=== PATIENT | male | born 1985 | race Caucasian/White ===

== ENCOUNTER 2020-10-15 00:38 | Outpatient (CLI) | payer OTHER, SELFPAY ==
[2020-10-15 19:17] LABS: SARS-CoV-2 RNA PCR Negative
== END 2020-10-15 00:39 | disposition home or self-care (01) ==
LOC: ANHCOVIDDT 00:39
PROVIDERS: Internal Medicine Gastroenterology; PCP Family Medicine Sports Medicine
DX: Z01.812 Encounter for preprocedural laboratory examination (principal); Z20.822 Contact with and (suspected) exposure to COVID-19
CPT/HCPCS: C9803; U0003; U0005

== ENCOUNTER 2020-10-18 01:21 | Day surgery (SDC) | payer OTHER, SELFPAY ==
[2020-10-04 14:02] VITALS: BMI 28.3
[2020-10-18 09:15] VITALS: BP 139/86; PULSE 107; RESP 16; TEMP 36.8; O2SAT 97
[2020-10-18] MEDS: LACTATED RINGERS 1,000 ML 150 ML IV CONT (09:23)
--- NOTE | 2020-10-18 09:33 | WPDANESEPPF ---
Anes - Initial Pre Proc Eval Procedure: Operation Date: 10/18/20 10:45 Proposed Procedures p Esophagogastroduodenoscopy & Colonoscopy - Cj Gan MD Date/Time: 10/18/20 09:33 Surgeon: Cj Gan MD Pre Op Diagnosis: Epigastric Pain, Other Fecal Abnoramlities Patient Data Age: 34 Gender: M Height: 1.75 m Weight: 86.2 kg Last Vital Signs Temp 36.8 C 10/18/20 09:15 Pulse 107 H 10/18/20 09:15 Resp 16 10/18/20 09:15 BP 139/86 10/18/20 09:15 Pulse Ox 97 10/18/20 09:15 Allergies Allergy/AdvReac Type Severity Reaction Status Date / Time No Known Drug Allergies Allergy Mild Unknown Verified 10/18/20 09:14 Home Medications Medication Instructions Recorded Confirmed Type omeprazole 20 mg capsule,delayed 20 mg PO DAILY 09/22/20 10/18/20 History release sodium,potassium,mag sulfates 17.5 See Rx Instructions PO .COMPLEX 10/04/20 10/18/20 Rx gram-3.13 gram-1.6 gram oral soln #354 ml Patient hx anesthesia problems: none Family hx anesthesia problems: none PMFSH Past Medical History Medical History (Updated 09/22/20 @ 16:29 by Cj Gan MD) Asthma Chronic headaches Colon, diverticulosis Dark stools Epigastric pain GERD (gastroesophageal reflux disease) Heart murmur Surgical History Surgical History S/P hernia surgery Social History Social History (Updated 09/22/20 @ 15:48 by Kimi Watts CMA) Smoking status: Never smoker Alcohol intake: never Substance use: never Substance use type: does not use Living arrangements: with family Gender identity (if verbalized by the patient): Male Spiritual care concerns: No Anes - Eval Final PreProcedure Day of Procedure 10/18/20 09:33 Patient weight: overweight Heart: regular rate and rhythm Lungs: clear to auscultation and normal air movement Airway: Mallampati scale class II Neurological: alert and oriented Last oral intake: >/= 8 hours ASA classification: II Emergent: no Anesthetic plan: proceed Anesthesia type and monitoring: general GIVS Informed Consent: The patient's anesthetic plan and its attendant risks and benefits were discussed with the patient/family/POA. Questions were solicited and answers provided to the satisfaction of the patient/family/POA.
--- NOTE | 2020-10-18 09:57 | WPDHPUPDATE1 ---
History and Physical Update Update Date/Time: 10/18/20 09:57 History and Physical has been reviewed, including an updated exam of the patient. There are NO changes in the patient's condition. Risks, benefits, and alternatives have been discussed and questions answered. Patient agrees to proceed with procedure.
[2020-10-18 10:22] VITALS: BP 116/78; PULSE 96; RESP 20; O2SAT 96
[2020-10-18 10:32] VITALS: BP 126/84; PULSE 78; RESP 22; O2SAT 99
[2020-10-18 10:42] VITALS: BP 123/86; PULSE 74; RESP 18; O2SAT 98
[2020-10-18 10:52] VITALS: BP 125/85; PULSE 76; RESP 18; O2SAT 100
== END 2020-10-18 10:58 | disposition home or self-care (01) ==
PROVIDERS: PCP Family Medicine Sports Medicine; Visit Provider Internal Medicine Gastroenterology
PROC: 0DJ08ZZ Inspection of Upper Intestinal Tract, Via Natural or Artificial Opening Endoscopic (ICD-10-PCS; CPT 43235; principal; 2020-10-18 10:45)
DX: K57.30 Diverticulosis of large intestine without perforation or abscess without bleeding (principal); K64.8 Other hemorrhoids; K63.5 Polyp of colon; K29.50 Unspecified chronic gastritis without bleeding; K21.9 Gastro-esophageal reflux disease without esophagitis; J45.909 Unspecified asthma, uncomplicated
CPT/HCPCS: 45380; 43239; 88305; C9803; J2704; J7120; U0003; U0005

== ENCOUNTER 2020-12-01 15:18 | Outpatient (CLI) | payer OTHER, SELFPAY ==
[2020-12-01 15:32] LABS: Hematocrit 47.6 % (42.0-52.0); Hemoglobin 15.9 g/dL (14.0-18.0); Mean Corpuscular HGB Conc 33.4 g/dl (32-36); Mean Corpuscular Hemoglobin 28.6 pg (26-34); Mean Corpuscular Volume 85.6 fl (80-100); Mean Platelet Volume 9.6 fl (7.4-10.4); Platelet Count Result 282 k/mm3 (150-375); Red Blood Count 5.56 M/mm3 (4.6-6.20); Red Cell Distribution Width 12.9 % (11.5-14.5); White Blood Count 9.3 K/mm3 (4.5-10.0)
[2020-12-01 15:45] LABS: Alanine Aminotransferase 24 U/L (4-50); Albumin Level 4.7 g/dL (3.5-5.1); Alkaline Phosphatase 107 U/L (38-126); Anion Gap 6 mmol/L (8-16); Aspartate Amino Transferase 28 U/L (17-59); Bilirubin,Total 0.2 mg/dL (0.2-1.3); Blood Urea Nitrogen 10 mg/dL (9-20); Calcium 9.4 mg/dL (8.4-10.2); Carbon Dioxide 32 mmol/L (22-30); Chloride 102 mmol/L (98-107); Estimated Glomerular Filt Rate > 60; Glucose 104 mg/dL (75-110); Magnesium 1.9 mg/dL (1.6-2.3); Sodium 140 mmol/L (137-145)
== END 2020-12-01 15:19 | disposition home or self-care (01) ==
PROVIDERS: PCP Family Medicine Sports Medicine; Visit Provider Nurse Practitioner Family
DX: R19.7 Diarrhea, unspecified (principal)
CPT/HCPCS: 36415; 80053; 83735; 84443; 85027

== ENCOUNTER 2022-11-09 09:16 | Outpatient (CLI) | payer OTHER, SELFPAY ==
[2022-11-09 10:05] LABS: Hematocrit 46.8 % (42.0-52.0); Hemoglobin 15.2 g/dL (14.0-18.0); Mean Corpuscular HGB Conc 32.5 g/dl (32-36); Mean Corpuscular Hemoglobin 28.1 pg (26-34); Mean Corpuscular Volume 86.7 fl (80-100); Platelet Count Result 292 k/mm3 (150-375); Red Cell Distribution Width 13.3 % (11.5-14.5); White Blood Count 7.3 K/mm3 (4.5-10.0)
[2022-11-09 10:15] LABS: Alanine Aminotransferase 30 U/L (6-50); Albumin Level 4.6 g/dL (3.5-5.1); Alkaline Phosphatase 93 U/L (38-126); Anion Gap 5 mmol/L (8-16); Aspartate Amino Transferase 24 U/L (17-59); Bilirubin,Total 0.4 mg/dL (0.2-1.3); Blood Urea Nitrogen 11 mg/dL (9-20); CRP < 0.5 mg/dL (<1.0); Carbon Dioxide 32 mmol/L (22-30); Chloride 104 mmol/L (98-107); Estimated Glomerular Filt Rate > 60; Glucose 104 mg/dL (65-110); Lipase 41 U/L (23-300); Potassium 4.6 mmol/L (3.4-5.0); Sodium 141 mmol/L (137-145)
[2022-11-09 11:14] LABS: Erythrocyte Sedimentation Rate 5 mm/hr (0-20)
[2022-11-13 11:24] LABS: Gliadin AB, IgG <1.0 U/mL (<15.0); TTG IGA AB <1.0 U/mL (<15.0)
== END 2022-11-09 09:17 | disposition home or self-care (01) ==
LOC: ANHLAB 09:18
PROVIDERS: PCP Nurse Practitioner Family; Visit Provider Nurse Practitioner
DX: R10.13 Epigastric pain (principal); R11.0 Nausea; R00.2 Palpitations
CPT/HCPCS: 36415; 80053; 83516; 83690; 84443; 85027; 85652; 86140; 86255

== ENCOUNTER 2022-11-20 07:15 | Outpatient (CLI) | payer OTHER, SELFPAY ==
--- NOTE | ~2022-11-20 | NM_ITS ---
EXAMINATION: NM hepatobiliary wo pharm DATE: 11/20/2022 11:31 INDICATION: Nausea, chest and epigastric pain. COMPARISON: None. TECHNIQUE: 5.2 mCi Tc-99m mebrofenin (Choletec) was administered intravenously. Scintigraphic images of the abdomen were obtained for one hour. At the 1 hour time point, the patient drank 8 oz Ensure, and imaging was continued for 60 minutes. Gallbladder ejection fraction was calculated by the technol ogist. FINDINGS: There is normal clearance of radiotracer from the blood pool. There is homogeneous tracer u ptake by the liver. Activity progresses to the bowel and gallbladder. The gallbladder ejection fract ion (GBEF) is 50%. Note that with this technique, normal GBEF >= 33%. IMPRESSION: 1. Normal hepatobiliary scan. Reviewed, dictated and finalized at location A. SH SANDER
== END 2022-11-20 07:16 | disposition home or self-care (01) ==
PROVIDERS: PCP Nurse Practitioner Family; Visit Provider Nurse Practitioner
DX: R00.2 Palpitations (principal); R07.9 Chest pain, unspecified; R11.0 Nausea
CPT/HCPCS: 78226; A9537

== ENCOUNTER 2022-11-22 08:56 | Outpatient (CLI) | payer OTHER, SELFPAY ==
--- NOTE | ~2022-11-22 | US_ITS ---
EXAMINATION: US abdomen complete DATE: 11/22/2022 09:53 INDICATION: R00.2 - Palpitations TECHNIQUE: Multiple grayscale and Doppler ultrasound images of the abdomen were obtained. COMPARISON: None available. FINDINGS: The visualized portions of the pancreas are normal. The liver is normal with normal echogen icity and echotexture. No surface nodularity. Hepatopedal flow in the main portal vein, with very mil d pulsatility, velocity does not reach zero and there is no reversal. Hepatic veins appear grossly no rmal. The gallbladder is normal with no abnormal wall thickening, pericholecystic fluid or stones. Th e common bile duct measures 5 mm. There was no sonographic Bardales sign. The visualized portions of th e aorta and inferior vena cava are normal. The right kidney measures 10.2 x 5.0 x 4.1 cm. The left kidney measures 10.2 x 4.8 x 4.2 cm. The kidn eys demonstrate normal parenchymal echogenicity. There is no hydronephrosis. The spleen is normal in appearance and measures 10.0 cm. IMPRESSION: Unremarkable abdominal ultrasound findings. Reviewed, dictated and finalized at location K. ITION HELPER
== END 2022-11-22 08:57 | disposition home or self-care (01) ==
PROVIDERS: PCP Nurse Practitioner Family; Visit Provider Nurse Practitioner
DX: R00.2 Palpitations (principal); R07.9 Chest pain, unspecified; R11.0 Nausea; R10.13 Epigastric pain
CPT/HCPCS: 76700

== ENCOUNTER 2022-12-07 15:39 | Emergency (ER) | payer OTHER, SELFPAY ==
--- NOTE | ~2022-12-07 | CT_ITS ---
Clinical Indication: Chest pain, abdominal pain CT Scan of the Chest, Abdomen, and Pelvis with Contrast: Technique: Contiguous sections were acquired throughout the chest, abdomen, and pelvis after intraven ous administration of 100 cc of Omnipaque 350. Dose reduction technique was used on this scan by violet fernández automated exposure control and iterative reconstruction technique. The dose-length product (DL P) was 1319.25 mGy-cm. COMPARISON: 08/11/2010 Findings: There is no evidence of any significant mediastinal, hilar or axillary lymphadenopathy. The mediastin al soft tissues appear normal. No aortic aneurysm or dissection. No pulmonary embolus. There is no evidence of pleural or pericardial effusion. The lungs are clear. No pulmonary nodules or infiltrates are noted. The liver, spleen, pancreas, gallbladder, adrenals and kidneys are within normal limits. No evidence of aortic aneurysm. No lymphadenopathy. No bowel obstruction or bowel wall thickening. There is no evidence to suggest acute appendicitis. Urinary bladder is unremarkable. Prostate gland and seminal vesicles are unremarkable. Impression: No significant abnormalities seen. Reviewed, dictated and finalized at [facility]. Impression: No significant abnormalities seen.
--- NOTE | ~2022-12-07 | XR_ITS ---
EXAMINATION: XR chest 2V DATE: 12/07/2022 16:14 INDICATION: Shortness of breath and dizziness TECHNIQUE: PA and lateral views of the chest are obtained. COMPARISON: None available FINDINGS: The lungs are free of acute opacities. No pleural effusion or pneumothorax. The cardiomedia stinal silhouette is normal. The visualized bones and soft tissues are unremarkable. IMPRESSION: 1. No acute cardiopulmonary abnormality. Reviewed, dictated and finalized at location L.
--- NOTE | 2022-12-07 15:45 | ECG_ITS ---
Measurements Intervals [place] Rate: 73 P: 52 [place]: 148 QRS: -7 QRSD: 99 T: 36 QT: 352 QTc: 389 Interpretive Statements SINUS RHYTHM BASELINE ARTIFACT- V3-V4 NORMAL ECG NO PREVIOUS ECG AVAILABLE FOR COMPARISON Electronically Signed On 12-07-2022 16:05:15 CDT by Clarence Shaffer D.O.
[2022-12-07 15:46] VITALS: BP 124/86; PULSE 66; RESP 14; TEMP 37.1; O2SAT 99
[2022-12-07 16:10] LABS: Basophils Percent Auto 0.5 % (0.2-1.2); Eosinophils Percent Auto 0.1 % (0-4.4); Hematocrit 45.3 % (42.0-52.0); Hemoglobin 14.9 g/dL (14.0-18.0); Immature Granulocyte Absolute 0.04 K/mm3 (0.00-0.031); Immature Granulocyte Percent A 0.5 % (0-0.5); Lymphocytes Absolute Auto 1.19 K/mm3 (0.9-3.2); Lymphocytes Percent Auto 13.6 % (18.3-44.2); Mean Corpuscular HGB Conc 32.9 g/dl (32-36); Mean Corpuscular Hemoglobin 28.3 pg (26-34); Mean Corpuscular Volume 86.1 fl (80-100); Mean Platelet Volume 9.5 fl (7.4-10.4); Monocytes Absolute Auto 0.6 K/mm3 (0.1-0.6); Monocytes Percent Auto 6.9 % (2.6-8.5); Neutrophils Absolute Auto 6.9 K/mm3 (1.3-6.7); Neutrophils Percent Auto 78.4 % (45.5-73.1); Platelet Count Result 292 k/mm3 (150-375); Red Blood Count 5.26 M/mm3 (4.6-6.20); Red Cell Distribution Width 12.9 % (11.5-14.5); White Blood Count 8.8 K/mm3 (4.5-10.0)
[2022-12-07 16:20] LABS: Alanine Aminotransferase 25 U/L (6-50); Albumin Level 4.6 g/dL (3.5-5.1); Alkaline Phosphatase 108 U/L (38-126); Anion Gap 8 mmol/L (8-16); Aspartate Amino Transferase 22 U/L (17-59); Bilirubin,Total 0.5 mg/dL (0.2-1.3); Blood Urea Nitrogen 13 mg/dL (9-20); Calcium 8.7 mg/dL (8.4-10.2); Carbon Dioxide 26 mmol/L (22-30); Chloride 105 mmol/L (98-107); Estimated CRCL calculation 131 ml/min; Estimated Glomerular Filt Rate > 60; Glucose 105 mg/dL (65-110); Lipase 51 U/L (23-300); Potassium 3.9 mmol/L (3.4-5.0); Sodium 139 mmol/L (137-145)
[2022-12-07 16:29] LABS: INR 1.2; Partial Thromboplastin Time 31.2 SECONDS (22.3-36.8); Prothrombin Time 14.4 Seconds (11.1-14.7)
[2022-12-07 16:31] LABS: Troponin I < 0.012 ng/mL (0.000-0.034)
[2022-12-07 20:31] VITALS: BP 126/88; PULSE 63; RESP 16; TEMP 36.6; O2SAT 98
[2022-12-07 21:11] LABS: Troponin I < 0.012 ng/mL (0.000-0.034)
--- NOTE | 2022-12-07 21:40 | PC.NURSE ---
pt states he has had palpitations since August states he has had stress test, echo and wore a holter monitor since then. [facility] he has followup appt tomorrow and will find out the results. [facility] also has had several tests ordered by GI and has EGD scheduled for 01/05. states he had palpitations and cp today along with sob and is worried.
[2022-12-07 21:43] VITALS: BP 130/95; PULSE 65; RESP 16; O2SAT 100
[2022-12-07 21:44] VITALS: PULSE 65
--- NOTE | 2022-12-08 00:22 | ED.GENADULT ---
HPI - General Adult General Chief complaint: Arrhythmia/Palpitations Stated complaint: SOB/palpitations Time Seen by Provider: 12/07/22 22:46 History of Present Illness HPI narrative: Patient 37-year-old gentleman who presents the emergency department with chief complaint of palpitations and shortness of breath. Patient reports that he has had several episodes of feeling as though his heart is racing getting lightheaded and feeling as though he is about to pass out the patient reports he has been seen at [place] several times and has seen cardiology and had a several day Holter monitor test but does not have the results of this. Patient reports that he is does follow-up with cardiology tomorrow and reports that he had an episode today at work and his employer recommended that he go to the emergency department. Patient reports that he is feeling much better at this time. Related Data Home Medications Medication Instructions Recorded Confirmed omeprazole 20 mg capsule,delayed 20 mg PO DAILY 09/22/20 12/01/20 release Allergies Allergy/AdvReac Type Severity Reaction Status Date / Time No Known Drug Allergies Allergy Mild Unknown Verified 12/07/22 15:40 Review of Systems Review of Systems: A 10 system review of systems was completed on the patient and is negative except for what is stated in the HPI. Nursing and ancillary documentation was reviewed. [facility] Past Medical History Medical History Asthma Chest pain Chronic gastritis Chronic headaches Colon, diverticulosis Dark stools Epigastric pain GERD (gastroesophageal reflux disease) Heart murmur Heart palpitations Hx of adenomatous colonic polyps Hx of diverticulitis of colon Nausea Obesity Surgical History Surgical History S/P hernia surgery Social History Social History Smoking status: Never smoker Alcohol intake: never Substance use: never Substance use type: does not use Living arrangements: with family Gender identity (if verbalized by the patient): Male Spiritual care concerns: No Exam Narrative: GENERAL: Well-appearing, well-nourished, and in no acute distress. HEAD: Normocephalic, atraumatic. EYES: PERRLA and EOMI. ENT: Nares clear, no rhinorrhea or epistaxis. Mucous membranes moist. NECK: Supple. CHEST: Clear to auscultation. No respiratory distress. HEART: Regular rate and rhythm. No murmur heard. Normal peripheral pulses. ABDOMEN: Soft, nontender, nondistended, normal active bowel sounds. EXTREMITIES: Normal range of motion. No edema. SKIN: Warm, dry, no rash. NEURO: No focal deficits. Alert and oriented x3. PSYCH: Normal mood and affect. Course Course Emergency Course: Differential diagnosis includes palpitations, dysrhythmia, PE, pneumonia, intra-abdominal infection, EKG is sinus rhythm rate of [address] elevation or ST depression Patient with no focal findings CTA chest abdomen pelvis showed no acute findings Laboratory studies showed normal CBC electrolytes are within normal limits troponin was negative at 0-hour and 3-hour. Lipase was within normal limits. The patient was observed on the wrapper counter and showed no evidence of dysrhythmia Vital Signs Vital signs: Vital Signs Temperature 37.1 C 12/07/22 15:46 Pulse Rate 66 12/07/22 15:46 Respiratory Rate 14 12/07/22 15:46 Blood Pressure 124/86 12/07/22 15:46 Pulse Oximetry 99 12/07/22 15:46 Oxygen Delivery Room Air 12/07/22 15:46 Temperature 36.6 C 12/07/22 20:31 Pulse Rate 65 12/07/22 21:44 Respiratory Rate 16 12/07/22 21:43 Blood Pressure 130/95 H 12/07/22 21:43 Pulse Oximetry 100 12/07/22 21:43 Oxygen Delivery Room Air 12/07/22 15:46 Medical Decision Making Vital Signs Vital Signs: Vital Signs Temperature
[2022-12-08 00:44] VITALS: BP 138/90; PULSE 78; RESP 18; O2SAT 98
== END 2022-12-08 00:45 | disposition home or self-care (01) ==
PROVIDERS: Emergency Medicine; Emergency Provider Emergency Medicine; PCP Nurse Practitioner Family
DX: R55 Syncope and collapse (principal); R00.2 Palpitations; J45.909 Unspecified asthma, uncomplicated; K21.9 Gastro-esophageal reflux disease without esophagitis
CPT/HCPCS: 36415; 71046; 71275; 74177; 80053; 83690; 84484; 85025; 85610; 85730; 93005; 99284; Q9967

== ENCOUNTER 2023-01-09 08:23 | Outpatient (CLI) | payer OTHER, SELFPAY ==
--- NOTE | 2023-02-02 11:02 | WPDSLEEPSTUD ---
Sleep Study Date of Study: 01/09/23 Ordering Provider: Lazaro Cabral MD Interpreting Physician: Alaina Anderson MD Sleep Study Type: CPAP Titration Height: 1.7 m Weight: 83.915 kg Body Mass Index: 29.0 Neck Circumference (inches): 16 [place]: 5 Reason for Sleep Study * Home sleep test using WatchPat 11/22/2022 with an apnea-hypopnea index 27.5, lowest desaturation 89%. Central apnea index was not reported. 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 He is treated for CAD, atrial fibrillation, and SVT. He has a history of obstructive sleep apnea, has been on PAP therapy without response to treatment. His PAP pressures are not known. He may have been on autoPAP. His initial study was over a year ago. He had a recent home sleep test 11/22/22 that showed he had an apnea hypopnea index of 27.6 He needs a CPAP titration. He has restless sleep, wakes up with heart palpitations. This happens randomly. His press bucker told him is blood oxygen levels were very low and this dropped his heart rate. He has difficulty falling asleep and staying asleep. He is excessively sleepy in the daytime. He has been treated with metoprolol and flecainide. He occasionally awakens from sleep feeling short of breath. He constantly awakens at night with heartburn, belching or coughing. He rarely snores, and it is rarely loud enough that others complain. He frequently has trouble sleeping with a cold. He rarely wakes up gasping for breath at night. He constantly has breathing problems at night observed by others. He frequently sweats excessively at night. He always notices palpitations at night. He occasionally falls asleep during the day, he never involuntarily and never while driving. He rarely has loss of muscle tone with strong emotion. He occasionally has daytime difficulties due to excessive sleepiness. He does not feel paralyzed on waking or falling asleep. He frequently has vivid dreamlike scenes upon awakening or falling asleep. He always feels afraid to go to sleep. He occasionally has nightmares. He always remembers his dreams. He always has racing thoughts. He frequently feels sad or depressed. He constantly has anxiety. He frequently has muscular tension. He constantly notices parts of his body jerking. He rarely kicks at night. He does not have crawling or aching feelings in his legs or any kind of leg pain at night. He rarely has morning jaw pain. He occasionally grinds his teeth during sleep. He occasionally is bothered by pain during the day. He rarely is awakened by pain at night. He occasionally wakes up feeling stiff in the morning with sore achy muscles. He frequently wakes up with pain in the neck and spine. He has headaches, fatigue, depression and insomnia. Normal bedtime is 10:00 p.m. falling asleep within 15-20 minutes. He wakes 4-5 times during the night usually to go to the bathroom but sometimes it is just a random awakening. Since he is sometimes able to return to sleep within minutes but at times, this may take hours. He wakes in the morning between 4:30 a.m. and 5:30 a.m.. On weekends, bedtime is still 10:00 p.m., wake time is later, 6:30 a.m. to 7:30 a.m.. He estimates getting 6 hours of interrupted sleep at night he does not generally take naps in the afternoon or evening. A short nap lasting 10-15 minutes may be refreshing. He is usually drowsy on waking. He feels better in the morning compared to other times of day. Habits: Never smoked tobacco. Caffeine 2 cups of coffee a day. No alcohol or recreational substances. [facility] Past Medical History Medical History Asthma Chest pain Chronic gastritis Chronic headaches Colon, diverticulosis Dark stools Epigastric pain GERD (gastroesophageal reflux disease) Heart murmur Heart palpitations Hx of adenomatous colonic polyps Hx of diverticulitis of
[2023-02-02 13:09] VITALS: BMI 29.0
== END 2023-01-10 05:35 | disposition home or self-care (01) ==
LOC: ANHCSM 08:27
PROVIDERS: PCP Family Medicine; Visit Provider Internal Medicine Cardiovascular Disease
DX: G47.30 Sleep apnea, unspecified (principal)
CPT/HCPCS: 95811

== ENCOUNTER 2023-01-24 19:08 | Emergency (ER) | payer OTHER, SELFPAY ==
[2023-01-24] VITALS (8 sets, daily range): BP systolic 124–128; BP diastolic 86–92; PULSE 49–70; RESP 15–20; TEMP 36.6; O2SAT 97–100
--- NOTE | ~2023-01-24 | XR_ITS ---
EXAMINATION: XR chest 2V Exam Date/Time: 01/24/2023 19:15 CDT HISTORY: cp AND SHORT OF BREATH X 1 DAY Comparison: 12/07/2022. RESULT: Lines, tubes, and devices: None. Lungs and pleura: Clear. Cardiomediastinal silhouette: Stable. Other: No acute osseous or upper abdominal finding. IMPRESSION: No acute cardiopulmonary process. Reviewed, dictated and finalized at location K.
--- NOTE | 2023-01-24 19:11 | ECG_ITS ---
Measurements Intervals [place] Rate: 57 P: 52 [place]: 156 QRS: 32 QRSD: 113 T: 36 QT: 398 QTc: 390 Interpretive Statements SINUS BRADYCARDIA INTRAVENTRICULAR CONDUCTION DELAY BASELINE ARTIFACT- I, II, AVR, AVF BORDERLINE ECG COMPARED TO ECG 12/07/2022 15:53:20 SINUS BRADYCARDIA NOW PRESENT INTRAVENTRICULAR CONDUCTION DELAY NOW PRESENT Electronically Signed On 01-24-2023 21:13:44 CDT by Clarence Shaffer D.O.
[2023-01-24 19:22] LABS: Basophils Absolute Auto 0.1 K/mm3 (0.0-0.1); Basophils Percent Auto 0.6 % (0.2-1.2); Eosinophils Absolute Auto 0.2 K/mm3 (0-0.3); Eosinophils Percent Auto 2.1 % (0-4.4); Hemoglobin 14.9 g/dL (14.0-18.0); Immature Granulocyte Absolute 0.02 K/mm3 (0.00-0.031); Immature Granulocyte Percent A 0.2 % (0-0.5); Lymphocytes Absolute Auto 2.31 K/mm3 (0.9-3.2); Lymphocytes Percent Auto 26.8 % (18.3-44.2); Mean Corpuscular HGB Conc 32.4 g/dl (32-36); Mean Corpuscular Hemoglobin 28.5 pg (26-34); Mean Corpuscular Volume 88.1 fl (80-100); Mean Platelet Volume 9.7 fl (7.4-10.4); Monocytes Absolute Auto 0.8 K/mm3 (0.1-0.6); Neutrophils Absolute Auto 5.3 K/mm3 (1.3-6.7); Neutrophils Percent Auto 61.3 % (45.5-73.1); Platelet Count Result 293 k/mm3 (150-375); Red Blood Count 5.22 M/mm3 (4.6-6.20); Red Cell Distribution Width 13.4 % (11.5-14.5); White Blood Count 8.6 K/mm3 (4.5-10.0)
[2023-01-24 19:32] LABS: Alanine Aminotransferase 26 U/L (6-50); Albumin Level 4.6 g/dL (3.5-5.1); Alkaline Phosphatase 95 U/L (38-126); Anion Gap 9 mmol/L (8-16); Aspartate Amino Transferase 25 U/L (17-59); Bilirubin,Total 0.4 mg/dL (0.2-1.3); Blood Urea Nitrogen 12 mg/dL (9-20); Carbon Dioxide 30 mmol/L (22-30); Chloride 103 mmol/L (98-107); Estimated CRCL calculation 115 ml/min; Estimated Glomerular Filt Rate > 60; Glucose 99 mg/dL (65-110); Lipase 46 U/L (23-300); Partial Thromboplastin Time 32.5 SECONDS (22.3-36.8); Potassium 3.9 mmol/L (3.4-5.0); Sodium 142 mmol/L (137-145)
[2023-01-24 19:44] LABS: Troponin I < 0.012 ng/mL (0.000-0.034)
--- NOTE | 2023-01-24 20:16 | ED.CHESTPAIN ---
HPI - Chest Pain General Chief Complaint: Chest Pain <DESTINEE Tamayo Last Filed: 01/25/23 02:37> Stated Complaint: chest tightness/lightheadeded <DESTINEE Tamayo Last Filed: 01/25/23 02:37> Time Seen by Provider: 01/24/23 19:58 <DESTINEE Tamayo Last Filed: 01/25/23 02:37> History of Present Illness HPI narrative: Patient is a 37-year-old male here for evaluation of multiple medical complaints. First, patient is having some chest pain. He describes it as a soreness in his anterior chest towards the middle of his sternum. It has been present for quite some time but he states it may have gotten worse this evening while he was at rest. States the pain is now improved but is still there. He also states that he has had a funny sensation in his head but he is described as a fullness. He has had some nasal congestion, dry cough and sinus drainage as well. He has had [id number] sensation in his posterior head for several months. Patient has been following along with an fruit or nut farm worker after he had Holter monitor done that showed some nonsustained supraventricular tachycardia. He is on metoprolol and also takes flecainide. Plan is for ablation if flecainide does not improve his symptoms, note reviewed from visit 01/09. <DESTINEE Tamayo Last Filed: 01/25/23 02:37> Related Data Home Medications: Home Medications Medication Instructions Recorded Confirmed metoprolol succinate 25 mg 25 mg PO DAILY 12/27/22 01/30/23 tablet,extended release 24 hr magnesium oxide 400 mg PO BID 01/04/23 01/30/23 flecainide 50 mg tablet 50 mg PO BID 01/17/23 01/30/23 <DESTINEE Tamayo Last Filed: 01/25/23 02:37> Allergies/Adverse Reactions: Allergies Allergy/AdvReac Type Severity Reaction Status Date / Time No Known Drug Allergies Allergy Mild Unknown Verified 01/30/23 14:24 <DESTINEE Tamayo Last Filed: 01/25/23 02:37> Review of Systems Review of Systems: Gen: Denies fevers or chills Eyes: Denies eye pain or visual change ENT: Reports congestion Respiratory: Denies shortness of breath or cough CV: Reports chest pain GI: Denies abdominal pain nausea, emesis or diarrhea denies burning, urgency, frequency or hematuria Musculoskeletal: Denies back pain or muscle pain Neuro: Denies numbness, tingling, weakness or focal weakness Skin: Denies rash Except as documented, all other systems reviewed and negative <DESTINEE Tamayo Last Filed: 01/25/23 02:37> [facility] Past Medical History Medical History: Medical History Asthma Chest pain Chronic gastritis Chronic headaches Colon, diverticulosis Dark stools Epigastric pain GERD (gastroesophageal reflux disease) Heart murmur Heart palpitations Hx of adenomatous colonic polyps Hx of diverticulitis of colon Nausea Obesity Sleep apnea Ventricular tachyarrhythmia <DESTINEE Tamayo Last Filed: 01/25/23 02:37> Surgical History Surgical History: Surgical History S/P hernia surgery <DESTINEE Tamayo Last Filed: 01/25/23 02:37> Social History Social History: Social History Smoking status: Never smoker Alcohol intake: current Drinks per week: 1 Substance use: never Substance use type: does not use Lack of Transportation: No Lack of Food: Never True Current Housing: I Have Housing Concerned About Future Housing: No Difficulty Paying Gas/Electric Bills: No Difficulty Paying for Meds: No Currently Unemployed: No Difficulty w/ Childcare or Family Care: No Living arrangements: with family Gender identity (if verbalized by the patient): Male Spiritual care concerns: No <DESTINEE Tamayo Last Filed:
[2023-01-24 20:27] LABS: Magnesium 2.3 mg/dL (1.6-2.3)
[2023-01-24] MEDS: IBUPROFEN 600 MG TABLET PO (20:30)
[2023-01-24 21:11] LABS: Influenza A QL RT-PCR Negative (Negative); Influenza B QL RT-PCR Negative (Negative); SARS-CoV-2 RNA PCR Negative (Negative)
[2023-01-24 22:51] LABS: Troponin I < 0.012 ng/mL (0.000-0.034)
== END 2023-01-24 23:42 | disposition home or self-care (01) ==
PROVIDERS: Emergency Medicine; Emergency Provider Physician Assistant; PCP Family Medicine
DX: R07.89 Other chest pain (principal); J32.9 Chronic sinusitis, unspecified; Z20.822 Contact with and (suspected) exposure to COVID-19; J45.909 Unspecified asthma, uncomplicated; K21.9 Gastro-esophageal reflux disease without esophagitis; G47.30 Sleep apnea, unspecified; E66.9 Obesity, unspecified; Z68.28 Body mass index [BMI] 28.0-28.9, adult; Z86.010 Personal history of colon polyps; R00.1 Bradycardia, unspecified; I45.9 Conduction disorder, unspecified
CPT/HCPCS: 36415; 71046; 80053; 83690; 83735; 84484; 85025; 85610; 85730; 87636; 93005; 99284; A9270

== ENCOUNTER 2023-01-26 02:36 | Day surgery (SDC) | payer OTHER, SELFPAY ==
[2022-12-27 13:54] VITALS: BMI 28.8
[2023-01-26 12:26] VITALS: BP 115/71; PULSE 59; RESP 16; TEMP 36.4; O2SAT 100; BMI 28.8
[2023-01-26] MEDS: LACTATED RINGERS 1,000 ML 150 ML IV CONT (12:35)
--- NOTE | 2023-01-26 12:36 | P.PNAN_ITS ---
Anes - Initial Pre Proc Eval Procedure: Operation Date: 01/26/23 14:00 Proposed Procedures p Esophagogastroduodenoscopy - Cj Gan MD Date/Time: 01/26/23 12:36 Surgeon: Cj Gan MD Pre Op Diagnosis: GERD, epigastric pain Patient Data Age: 37 Gender: M Height: 1.7 m Weight: 83.5 kg Last Vital Signs Temp 36.4 C L 01/26/23 12:26 Pulse 59 L 01/26/23 12:26 Resp 16 01/26/23 12:26 BP 115/71 01/26/23 12:26 Pulse Ox 100 01/26/23 12:26 O2 Del Method Room Air 01/26/23 12:26 Allergies Allergy/AdvReac Type Severity Reaction Status Date / Time No Known Drug Allergies Allergy Mild Unknown Verified 01/26/23 12:24 Home Medications Medication Instructions Recorded Confirmed Type metoprolol succinate 25 mg 25 mg PO DAILY 12/27/22 01/26/23 History tablet,extended release 24 hr famotidine 20 mg tablet 20 mg PO DAILY #30 tabs 01/04/23 01/26/23 Rx magnesium oxide 400 mg PO BID 01/04/23 01/26/23 History flecainide 50 mg tablet 50 mg PO BID 01/17/23 01/26/23 History Patient hx anesthesia problems: none Family hx anesthesia problems: none Results Review: All pre-operative results and documents have been reviewed as part of the pre- operative evaluation. [facility] Past Medical History Medical History Asthma Chest pain Chronic gastritis Chronic headaches Colon, diverticulosis Dark stools Epigastric pain GERD (gastroesophageal reflux disease) Heart murmur Heart palpitations Hx of adenomatous colonic polyps Hx of diverticulitis of colon Nausea Obesity Sleep apnea Ventricular tachyarrhythmia Surgical History Surgical History S/P hernia surgery Social History Social History Smoking status: Never smoker Alcohol intake: never Substance use: never Substance use type: does not use Living arrangements: with family Gender identity (if verbalized by the patient): Male Spiritual care concerns: No Anes - Eval Final PreProcedure Day of Procedure 01/26/23 12:36 Patient weight: overweight Heart: regular rate and rhythm Lungs: clear to auscultation and normal air movement Airway: Mallampati scale class II Neurological: alert and oriented Last oral intake: >/= 8 hours ASA classification: III Emergent: no Anesthetic plan: proceed Anesthesia type and monitoring: general GIVS Results Review: All pre-operative results and documents have been reviewed as part of the pre- operative evaluation. Informed Consent: The patient's anesthetic plan and its attendant risks and benefits were discussed with the patient/family/POA. Questions were solicited and answers provided to the satisfaction of the patient/family/POA.
--- NOTE | 2023-01-26 12:47 | WPDHPUPDATE1 ---
History and Physical Update Update Date/Time: 01/26/23 12:47 History and Physical has been reviewed, including an updated exam of the patient. There are NO changes in the patient's condition. Risks, benefits, and alternatives have been discussed and questions answered. Patient agrees to proceed with procedure.
[2023-01-26 13:03] VITALS: BP 106/61; PULSE 67; RESP 18; O2SAT 97
[2023-01-26 13:13] VITALS: BP 110/67; PULSE 66; RESP 17; O2SAT 97
[2023-01-26 13:23] VITALS: BP 113/76; PULSE 60; RESP 25; O2SAT 100
== END 2023-01-26 13:26 | disposition home or self-care (01) ==
PROVIDERS: PCP Family Medicine; Visit Provider Internal Medicine Gastroenterology
PROC: 0DJ08ZZ Inspection of Upper Intestinal Tract, Via Natural or Artificial Opening Endoscopic (ICD-10-PCS; CPT 43235; principal; 2023-01-26 14:00)
DX: K21.00 Gastro-esophageal reflux disease with esophagitis, without bleeding (principal); K29.50 Unspecified chronic gastritis without bleeding
CPT/HCPCS: 43239; 88305; J2704; J3010; J7120

== ENCOUNTER 2023-02-10 19:29 | Emergency (ER) | payer OTHER, SELFPAY ==
[2023-02-10] VITALS (9 sets, daily range): BP systolic 121–134; BP diastolic 79–93; PULSE 55–66; RESP 14–19; TEMP 36.6; O2SAT 95–100
--- NOTE | ~2023-02-10 | XR_ITS ---
EXAMINATION: XR chest 2V DATE: 02/10/2023 20:34 INDICATION: Shortness of breath and chest pain TECHNIQUE: PA and lateral views of the chest were obtained. COMPARISON: Chest radiograph dated 01/24/2023 FINDINGS: Blunting at the bilateral posterior sulci consistent with tiny bilateral pleural effusions. Tiny calc ified subpleural nodule in the right lower lobe. No other airspace opacities, pulmonary edema or pneu mothorax. The cardiomediastinal silhouette is normal. Mild thoracic dextrocurvature and chronic mild anterior wedging of a couple mid thoracic vertebral bodies. IMPRESSION: 1. Tiny bilateral pleural effusions. Reviewed, dictated and finalized at location A.
--- NOTE | ~2023-02-10 | CT_ITS ---
EXAMINATION: CTA chest PE protocol DATE: 02/10/2023 21:57 INDICATION: Chest pain. Palpitations. TECHNIQUE: Computed tomography angiography (CTA) of the chest was performed with 100 mL Omnipaque-350 intravenous contrast timed to evaluate the pulmonary arteries. Coronal maximum intensity projection 3D-reconstructions were created by the technologist. Automated exposure control and iterative reconst ruction technique were employed. The dose-length product was 423.78 mGy-cm. COMPARISON: Chest CT 12/07/2022 FINDINGS: The lungs demonstrate mild atelectasis. No pleural effusion. The heart size is normal. No p ericardial effusion. There is no pulmonary embolus. There is mild chronic anterior wedging of T3-T9 v ertebral bodies with thoracic kyphosis. IMPRESSION: 1. No pulmonary embolus. Reviewed, dictated and finalized at location A. IMPRESSION: 1. No pulmonary embolus.
--- NOTE | 2023-02-10 19:32 | ECG_ITS ---
Measurements Intervals [place] Rate: 58 P: 9 [place]: 145 QRS: -6 QRSD: 109 T: 31 QT: 418 QTc: 411 Interpretive Statements SINUS BRADYCARDIA BORDERLINE T WAVE ABNORMALITY- INFERIOR LEADS BASELINE ARTIFACT- III, V3 BORDERLINE ECG COMPARED TO ECG 01/24/2023 19:15:12 NO SIGNIFICANT CHANGES Electronically Signed On 02-11-2023 7:06:00 CDT by Clarence Shaffer D.O.
--- NOTE | 2023-02-10 20:26 | ED.GENADULT ---
HPI - General Adult General Chief complaint: Shortness of Breath/Dyspnea Stated complaint: dyspnea Time Seen by Provider: 02/10/23 19:48 History of Present Illness HPI narrative: Patient is a 37-year-old male here due to chest pain x1 day. Patient states the pain is sharp in nature, present on the left side of his chest, described as a gurgling sensation. States that the pain sentiment to a panic attack earlier today. Patient has been following with the EP doctor and consumer credit counselor due to similar symptoms over the past 6 months, has worn a Holter monitor that showed V. tach and SVT and he has been taking flecainide and metoprolol. States that these medicines have really not helped his symptoms but he is unaware of any further events of arrhythmias. Today he denies any lightheadedness, nausea, vomiting, dizziness or syncope but he has experienced the symptoms intermittently over the past 6 months. He had a recent EGD that showed reflux esophagitis. He is also completed a sleep study medicine and reportedly was recommended to have a CPAP machine but has not yet gotten this yet. Related Data Home Medications Medication Instructions Recorded Confirmed metoprolol succinate 25 mg 25 mg PO DAILY 12/27/22 01/30/23 tablet,extended release 24 hr magnesium oxide 400 mg PO BID 01/04/23 01/30/23 flecainide 50 mg tablet 50 mg PO BID 01/17/23 01/30/23 Allergies Allergy/AdvReac Type Severity Reaction Status Date / Time No Known Drug Allergies Allergy Mild Unknown Verified 01/30/23 14:24 Review of Systems Review of Systems: Gen.: Denies fevers or chills Eyes: Denies eye pain or visual change ENT: Denies congestion Respiratory: Denies shortness of breath or cough CV: Reports chest pain GI: Denies abdominal pain nausea, emesis or diarrhea denies burning, urgency, frequency or hematuria Musculoskeletal: Denies back pain or muscle pain Neuro: Denies numbness, tingling, weakness or focal weakness Skin: Denies rash Except as documented, all other systems reviewed and negative [facility] Past Medical History Medical History Asthma Chest pain Chronic gastritis Chronic headaches Colon, diverticulosis Dark stools Epigastric pain GERD (gastroesophageal reflux disease) Heart murmur Heart palpitations Hx of adenomatous colonic polyps Hx of diverticulitis of colon Nausea Obesity Sleep apnea Ventricular tachyarrhythmia Surgical History Surgical History S/P hernia surgery Social History Social History Smoking status: Never smoker Alcohol intake: current Drinks per week: 1 Substance use: never Substance use type: does not use Lack of Transportation: No Lack of Food: Never True Current Housing: I Have Housing Concerned About Future Housing: No Difficulty Paying Gas/Electric Bills: No Difficulty Paying for Meds: No Currently Unemployed: No Difficulty w/ Childcare or Family Care: No Living arrangements: with family Gender identity (if verbalized by the patient): Male Spiritual care concerns: No Exam Narrative: APPEARANCE: Well appearing, no pain in distress, well-nourished. Head: Normocephalic and atraumatic. EYES: PERRLA/EOMI, conjunctivae clear NOSE: No nasal drainage EARS: External ear normal in appearance THROAT: Oropharynx is clear. Mucous membranes are moist. NECK: Supple. No adenopathy, no masses. RESPIRATORY: Airway patent, respirations nonlabored. Clear to auscultation bilaterally, no rales, rhonchi, wheezing. CARDIOVASCULAR: Regular rate and rhythm without murmurs, rubs, or gallops. ABDOMINAL: Normoactive bowel sounds. Soft, nontender, nondistended. No rebound tenderness or guarding. MUSCULOSKELETAL: Extremities are warm and well-perfused. Moves all extremities well. No edema. NEURO: Normal speech. No foca
[2023-02-10 20:35] LABS: Basophils Absolute Auto 0.1 K/mm3 (0.0-0.1); Basophils Percent Auto 0.6 % (0.2-1.2); Eosinophils Absolute Auto 0.1 K/mm3 (0-0.3); Eosinophils Percent Auto 0.8 % (0-4.4); Hematocrit 45.8 % (42.0-52.0); Immature Granulocyte Absolute 0.04 K/mm3 (0.00-0.031); Immature Granulocyte Percent A 0.5 % (0-0.5); Lymphocytes Percent Auto 22.3 % (18.3-44.2); Mean Corpuscular HGB Conc 32.8 g/dl (32-36); Mean Corpuscular Hemoglobin 28.4 pg (26-34); Mean Corpuscular Volume 86.7 fl (80-100); Mean Platelet Volume 9.9 fl (7.4-10.4); Monocytes Absolute Auto 0.8 K/mm3 (0.1-0.6); Monocytes Percent Auto 9.4 % (2.6-8.5); Neutrophils Absolute Auto 5.7 K/mm3 (1.3-6.7); Neutrophils Percent Auto 66.4 % (45.5-73.1); Platelet Count Result 305 k/mm3 (150-375); Red Blood Count 5.28 M/mm3 (4.6-6.20); White Blood Count 8.5 K/mm3 (4.5-10.0)
[2023-02-10 20:45] LABS: Alanine Aminotransferase 23 U/L (6-50); Albumin Level 4.6 g/dL (3.5-5.1); Alkaline Phosphatase 110 U/L (38-126); Anion Gap 6 mmol/L (8-16); Aspartate Amino Transferase 22 U/L (17-59); Bilirubin,Total 0.4 mg/dL (0.2-1.3); Blood Urea Nitrogen 11 mg/dL (9-20); Calcium 8.9 mg/dL (8.4-10.2); Carbon Dioxide 30 mmol/L (22-30); Chloride 103 mmol/L (98-107); Estimated CRCL calculation 142 ml/min; Estimated Glomerular Filt Rate > 60; Glucose 97 mg/dL (65-110); Lipase 42 U/L (23-300); Magnesium 2.4 mg/dL (1.6-2.3); Sodium 139 mmol/L (137-145)
[2023-02-10 20:57] LABS: Troponin I < 0.012 ng/mL (0.000-0.034)
[2023-02-11] VITALS: PULSE 57; RESP 17; O2SAT 96
[2023-02-11 00:37] VITALS: PULSE 64; RESP 15; O2SAT 97
[2023-02-11 00:38] LABS: Troponin I < 0.012 ng/mL (0.000-0.034)
[2023-02-11 00:46] VITALS: PULSE 65; RESP 21; O2SAT 98
== END 2023-02-11 01:12 | disposition home or self-care (01) ==
PROVIDERS: Emergency Provider Physician Assistant; PCP Family Medicine
DX: R07.9 Chest pain, unspecified (principal); R00.1 Bradycardia, unspecified; J45.909 Unspecified asthma, uncomplicated; K21.9 Gastro-esophageal reflux disease without esophagitis; G47.30 Sleep apnea, unspecified
CPT/HCPCS: 36415; 71046; 71275; 80053; 83690; 83735; 84484; 85025; 93005; 99284; Q9967

== ENCOUNTER 2023-03-12 00:48 | Day surgery (SDC) | payer OTHER, SELFPAY ==
[2023-03-09 15:47] VITALS: BMI 27.8
[2023-03-12] VITALS (10 sets, daily range): BP systolic 119–134; BP diastolic 73–100; PULSE 56–71; RESP 15–18; TEMP 36.8; O2SAT 95–100; BMI 27.2
[2023-03-12 07:22] LABS: Basophils Absolute Auto 0.1 K/mm3 (0.0-0.1); Eosinophils Absolute Auto 0.1 K/mm3 (0-0.3); Eosinophils Percent Auto 1.3 % (0-4.4); Hematocrit 47.2 % (42.0-52.0); Immature Granulocyte Absolute 0.01 K/mm3 (0.00-0.031); Immature Granulocyte Percent A 0.2 % (0-0.5); Lymphocytes Absolute Auto 1.53 K/mm3 (0.9-3.2); Lymphocytes Percent Auto 25.7 % (18.3-44.2); Mean Corpuscular HGB Conc 31.8 g/dl (32-36); Mean Corpuscular Hemoglobin 28.4 pg (26-34); Mean Corpuscular Volume 89.2 fl (80-100); Mean Platelet Volume 9.5 fl (7.4-10.4); Monocytes Absolute Auto 0.5 K/mm3 (0.1-0.6); Monocytes Percent Auto 8.6 % (2.6-8.5); Neutrophils Absolute Auto 3.8 K/mm3 (1.3-6.7); Neutrophils Percent Auto 63.2 % (45.5-73.1); Platelet Count Result 299 k/mm3 (150-375); Red Blood Count 5.29 M/mm3 (4.6-6.20); Red Cell Distribution Width 13.4 % (11.5-14.5)
[2023-03-12 07:37] LABS: Anion Gap 4 mmol/L (8-16); Blood Urea Nitrogen 10 mg/dL (9-20); Calcium 9.2 mg/dL (8.4-10.2); Carbon Dioxide 34 mmol/L (22-30); Chloride 103 mmol/L (98-107); Estimated CRCL calculation 102 ml/min; Estimated Glomerular Filt Rate > 60; Glucose 100 mg/dL (65-110); Potassium 4.1 mmol/L (3.4-5.0); Sodium 141 mmol/L (137-145)
--- NOTE | 2023-03-12 08:30 | WPDMODSED ---
Moderate Sedation Note-Pt Data Patient Data Diagnosis: Nonsustained ventricular tachycardia Present Complaint: intermittent palpitations with chest pain Procedure to be performed/Plan: left heart catheterization Allergies Allergy/AdvReac Type Severity Reaction Status Date / Time No Known Drug Allergies Allergy Mild Unknown Verified 03/12/23 07:08 Home Medications Medication Instructions Recorded Confirmed Type famotidine 20 mg tablet 20 mg PO Q12H #60 tabs 01/26/23 03/09/23 Rx verapamil 180 mg tablet,extended 180 mg PO DAILY 03/09/23 03/09/23 History release vitamin B complex (B 1 tablet PO EVERY OTHER DAY 03/09/23 03/09/23 History Complex-Vitamin B12 tablet) Current Medications: Active Medications Sodium Chloride (Normal Saline Iv) 500 mls @ 100 mls/hr IV CONT .Q5H ESME Sedation/Anesthesia: No previous sedation/anesthesia problems (including family history). [facility] Past Medical History Medical History Asthma Chest pain Chronic gastritis Chronic headaches Colon, diverticulosis Dark stools Epigastric pain GERD (gastroesophageal reflux disease) Heart murmur Heart palpitations Hx of adenomatous colonic polyps Hx of diverticulitis of colon Nausea Obesity Sleep apnea Ventricular tachyarrhythmia Surgical History Surgical History S/P hernia surgery Social History Social History Smoking status: Never smoker Second hand tobacco smoke exposure: Yes Alcohol intake: current Drinks per week: 1 Alcohol use details: Maybe once a month Substance use: never Substance use type: does not use Lack of Transportation: No Lack of Food: Never True Current Housing: I Have Housing Concerned About Future Housing: No Difficulty Paying Gas/Electric Bills: No Difficulty Paying for Meds: No Currently Unemployed: No Difficulty w/ Childcare or Family Care: No Living arrangements: with family Gender identity (if verbalized by the patient): Male Spiritual care concerns: No Mod Sed Physical Exam Physical Exam Pre Procedural Exam: Normal: Appearance, Neck, Throat, Airway, Lungs, Heart Size, Heart Rate, Heart Rhythm, Neuro Exam and Extremities Hours since solid foods: 12 Hours since liquid intake: 12 Mallampati Classification: class II Internal Medicine - PN: Obj Da Vital Signs Vital Signs: Vital Signs - 24 hr 03/12/23 07:12 Temperature 36.8 C Pulse Rate 61 Respiratory Rate 16 Blood Pressure 133/73 Pulse Oximetry 100 Oxygen Delivery Room Air Meds/Results Medications: Active Medications Generic Name Dose Route Start Last Admin Trade Name Freq PRN Reason Stop Dose Admin Sodium Chloride 500 mls @ 100 mls/hr 03/12/23 07:00 Normal Saline Iv IV CONT .Q5H ESME Labs 03/12/23 07:11 03/12/23 07:11 Labs: Laboratory Results - last 24 hr 03/12/23 07:11 WBC 6.0 RBC 5.29 Hgb 15.0 Hct 47.2 MCV 89.2 MCH 28.4 MCHC 31.8 L RDW 13.4 Plt Count 299 MPV 9.5 Immature Gran % (Auto) 0.2 Neut % (Auto) 63.2 Lymph % (Auto) 25.7 [place] % (Auto) 8.6 H Eos % (Auto) 1.3 Baso % (Auto) 1.0 Lymph # (Auto) 1.53 [place] # (Auto) 0.5 Eos # (Auto) 0.1 Baso # (Auto) 0.1 Abs Immat Gran (auto) 0.01 Absolute Neuts (auto) 3.8 Absolute Nucleated RBC 0.0 Nucleated RBC % 0.0 Sodium 141 Potassium 4.1 Chloride 103 Carbon Dioxide 34 H Anion Gap 4 L BUN 10 Creatinine 0.80 Estim Creat Clear Calc 102 Estimated GFR > 60 Glucose 100 Calcium 9.2 ASA Classification/Sedation ASA Classification/Sedation ASA Class: II Emergent: No Risks: Risks, benefits and alternatives explained and patient/family accepted plan for sedation. Patient re-evaluated immediately prior to sedation.
--- NOTE | 2023-03-12 08:58 | P.PCNCC_ITS ---
Cardiac Cath Procedure Note Date of procedure:: 03/12/23 Performing physician:: Usman Isbell MD Indication:: nonsustained ventricular tachycardia Brief clinical history:: this is a 37-year-old man with intermittent palpitations and chest pain was been found to have episodes of nonsustained ventricular tachycardia. He is undergoing testing to ensure that ischemic disease is not involved in his arrhythmia Procedure Procedure performed:: left ventriculogram coronary angiogram Angio-Seal to right femoral artery Sedation/Medication given:: fentanyl 50 mg Versed 2 mg case start time 8:39 a.m. case end 856 sedation provided by Ines Lea RN, trained observer Access site:: right femoral artery Estimated blood loss:: 25 cc Procedure note:: patient was brought to the cardiac catheterization lab in the postabsorptive state where the right femoral triangle was prepared and draped in the usual fashion. Anesthesia was provided with 1% lidocaine infiltrated locally. Modified Seldinger technique 5 [place] vascular sheath was placed into the femoral artery. After this left heart catheterization carried out. A [address] [place] [address] bria gallardo and to inject on LV g in the WOODARD projection. Following this a 5 [place] FL4 catheter was used to engage inject the left coronary artery and a 5 [place] JR4 catheter was used to engage and inject the right coronary artery. The cineangiograms were then and the case was terminated. An angiogram was performed with the femoral artery the a 6 [place] Angio-Seal device was deployed with a good hemostatic result. Patient tolerated procedure well there were no apparent complications the patient was taken to the holding area with no sign of groin hematoma. Findings:: Hemodynamics: Central aortic pressure is 130/76 left ventricle 130/0 end- diastolic pressure 12 there was no systolic gradient pullback across the aortic valve. left ventricle: The LV is of normal size exhibits good contractility In all segments with no regional wall motion abnormalities ejection fraction of 60% and is identified. the left main coronary artery is nicely patent the left anterior descending is a medium caliber artery extending down to around the apex. The LAD and its branches are smooth and angiographically free of disease. The circumflex is a moderate caliber artery giving rise to the marginal branches. The circumflex is smooth and angiographically free of disease. The right coronary artery is large in caliber and dominant to the posterior circulation. The RCA is smooth and angiographically free of disease. Conclusion:: 1. Right coronary dominant circulation with no angiographic evidence of coronary artery disease 2. normal left ventricular systolic contractility Usman Isbell MD FACC
== END 2023-03-12 11:55 | disposition home or self-care (01) ==
PROVIDERS: PCP Family Medicine; Visit Provider Specialist
PROC: 4A023N7 Measurement of Cardiac Sampling and Pressure, Left Heart, Percutaneous Approach (ICD-10-PCS; CPT 93452; principal; 2023-03-12 08:30)
DX: I47.29 Other ventricular tachycardia (principal); R07.9 Chest pain, unspecified; K21.9 Gastro-esophageal reflux disease without esophagitis; G47.30 Sleep apnea, unspecified
CPT/HCPCS: 36415; 80048; 85025; 93458; C1760; C1887; C1894; G0269; J1644; J2250; J3010

== ENCOUNTER 2023-08-26 16:02 | Emergency (ER) | payer OTHER, SELFPAY ==
--- NOTE | ~2023-08-26 | CT_ITS ---
EXAMINATION: CT abdomen pelvis w con DATE: 08/26/2023 17:39 INDICATION: abdomen pain, nausea, diarrhea TECHNIQUE: Computed tomography (CT) of the abdomen and pelvis was performed with 100 mL Omnipaque-350 intravenous contrast. Automated exposure control and iterative reconstruction technique were employe d. The dose-length product was 526.12 mGy-cm. COMPARISON: 12/07/2022. FINDINGS: Lower thorax: Unremarkable Liver: Normal. Biliary/Gallbladder: Gallbladder is normal. No bile duct dilation. Pancreas: No mass or duct dilation. Spleen: Normal. Adrenals:No mass. Kidneys: No suspicious mass, obstructing stone, or hydronephrosis. Multiple simple right upper pole c ysts. GI tract: Mild distal esophageal and gastric wall edema. No small or large bowel dilation. Normal mike endix. Diverticulosis without diverticulitis. Mesentery/Peritoneum: No ascites, mass, or free air. Retroperitoneum: No mass. Pelvis: Pelvic organs are within normal limits. Soft Tissues: Soft tissues and body wall unremarkable. Bones: No acute osseous finding. IMPRESSION: No acute abdominopelvic process detected. Reviewed, dictated and finalized at location K. T MARKET[employer] MANAGER
[2023-08-26 16:03] VITALS: BP 159/89; PULSE 70; RESP 14; TEMP 36.4; O2SAT 100
--- NOTE | 2023-08-26 16:19 | ED.ABDPAIN ---
HPI - Abdominal Pain General Chief Complaint: Abdominal Pain Stated Complaint: abd pain Time Seen by Provider: 08/26/23 16:19 Source: patient Mode of arrival: ambulatory Limitations: no limitations History of Present Illness HPI narrative: Jesus Manuel is a 37-year-old male patient presenting to the ER today with complaints of abdominal pain, nausea, and diarrhea over the past week. Reports he has had diarrhea off and on for the past week. No diarrhea stools today however he had 2-3 yesterday. Feels as though he has had fever as well. Reports that the pain is in the upper abdomen and radiates into his back and shoulder. No history of any abdominal pathology/surgeries. History of inguinal hernia. Had a normal stool today. Is passing gas. Denies abdominal bloating. Has been taking ujil-[id number]-[id number] medications to help alleviate his symptoms such as Imodium-reports that when he does take Imodium it makes the abdominal pain worse. Drinks alcohol occasionally. No recent weight loss. Has been trying to eat a bland diet for the past week. Related Data Home Medications Medication Instructions Recorded Confirmed verapamil 180 mg tablet,extended 180 mg PO DAILY 03/09/23 03/09/23 release vitamin B complex (B 1 tablet PO EVERY OTHER DAY 03/09/23 03/09/23 Complex-Vitamin B12 tablet) Allergies Allergy/AdvReac Type Severity Reaction Status Date / Time No Known Drug Allergies Allergy Mild Unknown Verified 08/26/23 17:03 Review of Systems Review of Systems: Pertinent positives per HPI. Patient denies any fever, chills, rash, headache, visual changes, dizziness, cough, shortness of breath, chest pain, palpitations, vomiting, constipation, or any urinary issues. [facility] [place] Past Medical History Medical History Asthma Chest pain Chronic gastritis Chronic headaches Colon, diverticulosis Dark stools Epigastric pain GERD (gastroesophageal reflux disease) Heart murmur Heart palpitations Hx of adenomatous colonic polyps Hx of diverticulitis of colon Nausea Obesity Sleep apnea Ventricular tachyarrhythmia Surgical History Surgical History S/P hernia surgery Social History Social History Smoking status: Never smoker Second hand tobacco smoke exposure: Yes Alcohol intake: current Drinks per week: 1 Alcohol use details: Maybe once a month Substance use: never Substance use type: does not use Lack of Transportation: No Lack of Food: Never True Current Housing: I Have Housing Concerned About Future Housing: No Difficulty Paying Gas/Electric Bills: No Difficulty Paying for Meds: No Currently Unemployed: No Difficulty w/ Childcare or Family Care: No Living arrangements: with family Gender identity (if verbalized by the patient): Male Spiritual care concerns: No Comments At the time of my signature, I reviewed and agree with the nursing past medical, surgical, social, and family history. There is no relevant family history pertinent to the patient complaint. Exam Narrative: General: Well-developed, well nourished, in no apparent distress Head: Normocephalic, atraumatic Eyes: Pupils equally round and reactive to light bilaterally, EOM intact, sclera and conjunctive clear, no discharge, lids normal Ears: TMs intact and clear, ear canals clear, no drainage, grossly hearing normal. Nose: Nares patent, no discharge, no inflammation, no sinus tenderness. Mouth: Oral pharynx without lesions or masses, good dentition, MMM. Neck: Supple, trachea midline, no enlargement of anterior or posterior cervical nodes, no thyroid masses or goiter palpable. Cardio: Regular rate and rhythm, s1 and s2 normal, no murmur appreciated. Resp: Clear to auscultation bilaterally, no rhonchi, rales, wheezing or rubs Abdomen: Soft, pli
[2023-08-26] MEDS: ONDANSETRON INJ 4 MG/2 ML VIAL IV PUSH (16:59)
[2023-08-26] MEDS: SODIUM CHLORIDE 0.9% IV 1,000 ML 999 ML IV CONT (16:59)
[2023-08-26 17:02] LABS: Basophils Absolute Auto 0.1 K/mm3 (0.0-0.1); Basophils Percent Auto 1.4 % (0.2-1.2); Eosinophils Percent Auto 21.1 % (0-4.4); Hematocrit 48.7 % (42.0-52.0); Hemoglobin 15.8 g/dL (14.0-18.0); Immature Granulocyte Absolute 0.03 K/mm3 (0.00-0.031); Immature Granulocyte Percent A 0.3 % (0-0.5); Lymphocytes Absolute Auto 2.21 K/mm3 (0.9-3.2); Lymphocytes Percent Auto 23.4 % (18.3-44.2); Mean Corpuscular HGB Conc 32.4 g/dl (32-36); Mean Corpuscular Hemoglobin 28.5 pg (26-34); Mean Corpuscular Volume 87.7 fl (80-100); Mean Platelet Volume 9.5 fl (7.4-10.4); Monocytes Absolute Auto 0.5 K/mm3 (0.1-0.6); Monocytes Percent Auto 5.7 % (2.6-8.5); Neutrophils Absolute Auto 4.6 K/mm3 (1.3-6.7); Neutrophils Percent Auto 48.1 % (45.5-73.1); Platelet Count Result 318 k/mm3 (150-375); Red Blood Count 5.55 M/mm3 (4.6-6.20); White Blood Count 9.5 K/mm3 (4.5-10.0)
[2023-08-26 17:03] VITALS: BP 132/88; PULSE 70; RESP 19; O2SAT 100
[2023-08-26 17:05] LABS: Appearance Urine Turbid (Clear); Bacteria Urine None Seen /hpf; Bilirubin Urine Negative (Negative); Blood Urine Negative (Negative); Color Urine Yellow (Yellow); Glucose Urine UA Negative (Negative); Ketones Urine Negative (Negative); Leukocyte Esterase Ur Negative LEU/UL (Negative); Nitrate Urine Negative (Negative); Non Pathogenic Casts 0-2; Protein Urine Negative (Negative); RBC Urine 0-2 /hpf (0-2); Specific Grav Ur 1.011 (1.001-1.035); Squamous Epithelial Cell Urine None seen /hpf (Few); Urobilinogen Urine 0.2 mg/dL (<2.0); WBC Urine 0-5 /hpf; pH Urine 7.5 (5.0-9.0)
[2023-08-26 17:12] LABS: Add Urine Microscopic? YES
[2023-08-26 17:14] LABS: Alanine Aminotransferase 27 U/L (6-50); Albumin Level 4.8 g/dL (3.5-5.1); Alkaline Phosphatase 86 U/L (38-126); Anion Gap 6 mmol/L (8-16); Aspartate Amino Transferase 28 U/L (17-59); Bilirubin,Total 0.4 mg/dL (0.2-1.3); Blood Urea Nitrogen 10 mg/dL (9-20); Calcium 9.8 mg/dL (8.4-10.2); Carbon Dioxide 32 mmol/L (22-30); Chloride 104 mmol/L (98-107); Estimated CRCL calculation 102 ml/min; Estimated Glomerular Filt Rate > 60; Glucose 105 mg/dL (65-110); Lipase 34 U/L (23-300); Sodium 142 mmol/L (137-145)
[2023-08-26 18:26] VITALS: BP 132/88; PULSE 76; RESP 18; O2SAT 99
== END 2023-08-26 18:28 | disposition home or self-care (01) ==
PROVIDERS: Emergency Provider Nurse Practitioner Family; PCP Nurse Practitioner Adult Health
DX: J45.909 Unspecified asthma, uncomplicated (principal); K21.9 Gastro-esophageal reflux disease without esophagitis; Z86.010 Personal history of colon polyps; E66.9 Obesity, unspecified; Z68.27 Body mass index [BMI] 27.0-27.9, adult; G47.30 Sleep apnea, unspecified
CPT/HCPCS: 36415; 74177; 80053; 81001; 83690; 85025; 96361; 96374; 99284; J2405; J7030; Q9967

== ENCOUNTER 2023-09-12 16:15 | Outpatient (CLI) | payer OTHER, SELFPAY ==
[2023-09-12 16:47] LABS: Basophils Absolute Auto 0.1 K/mm3 (0.0-0.1); Basophils Percent Auto 0.9 % (0.2-1.2); Eosinophils Absolute Auto 0.7 K/mm3 (0-0.3); Eosinophils Percent Auto 8.3 % (0-4.4); Hematocrit 46.2 % (42.0-52.0); Hemoglobin 15.1 g/dL (14.0-18.0); Immature Granulocyte Absolute 0.02 K/mm3 (0.00-0.031); Immature Granulocyte Percent A 0.2 % (0-0.5); Lymphocytes Absolute Auto 2.36 K/mm3 (0.9-3.2); Lymphocytes Percent Auto 27.3 % (18.3-44.2); Mean Corpuscular HGB Conc 32.7 g/dl (32-36); Mean Corpuscular Hemoglobin 28.9 pg (26-34); Mean Corpuscular Volume 88.3 fl (80-100); Mean Platelet Volume 9.6 fl (7.4-10.4); Monocytes Absolute Auto 0.7 K/mm3 (0.1-0.6); Neutrophils Absolute Auto 4.8 K/mm3 (1.3-6.7); Neutrophils Percent Auto 55.3 % (45.5-73.1); Platelet Count Result 311 k/mm3 (150-375); Red Blood Count 5.23 M/mm3 (4.6-6.20); Red Cell Distribution Width 13.2 % (11.5-14.5); White Blood Count 8.7 K/mm3 (4.5-10.0)
[2023-09-12 17:16] LABS: Cholesterol 225 mg/dL (0-200); Creatine Kinase 109 U/L (55-170); HDL Direct 81 mg/dL; Magnesium 2.2 mg/dL (1.6-2.3); Triglycerides 74 mg/dL (<150)
[2023-09-12 17:26] LABS: Erythrocyte Sedimentation Rate 1 mm/hr (0-20)
[2023-09-12 17:27] LABS: LDL Cholesterol Direct 99 mg/dL
[2023-09-12 17:31] LABS: Free T4 Free Thyroxine 1.09 ng/mL (0.78-2.19)
[2023-09-17 16:43] LABS: ANA Cascade Screen Negative (Negative)
== END 2023-09-12 16:16 | disposition home or self-care (01) ==
LOC: ANHLAB 16:17
PROVIDERS: PCP Nurse Practitioner Adult Health; Visit Provider Nurse Practitioner Adult Health
DX: F41.9 Anxiety disorder, unspecified (principal); R07.89 Other chest pain; Z13.9 Encounter for screening, unspecified
CPT/HCPCS: 36415; 80061; 82550; 83735; 84439; 84443; 85025; 85652; 86038; 86225; 86235; 86364

== ENCOUNTER 2023-10-17 10:01 | Outpatient (CLI) | payer OTHER, SELFPAY ==
[2023-10-17 10:21] LABS: Basophils Absolute Auto 0.1 K/mm3 (0.0-0.1); Basophils Percent Auto 1.2 % (0.2-1.2); Eosinophils Absolute Auto 0.1 K/mm3 (0-0.3); Eosinophils Percent Auto 2.4 % (0-4.4); Hematocrit 44.8 % (42.0-52.0); Hemoglobin 14.1 g/dL (14.0-18.0); Lymphocytes Absolute Auto 1.84 K/mm3 (0.9-3.2); Lymphocytes Percent Auto 36.4 % (18.3-44.2); Mean Corpuscular HGB Conc 31.5 g/dl (32-36); Mean Corpuscular Hemoglobin 28.2 pg (26-34); Mean Corpuscular Volume 89.6 fl (80-100); Mean Platelet Volume 9.8 fl (7.4-10.4); Monocytes Absolute Auto 0.4 K/mm3 (0.1-0.6); Monocytes Percent Auto 8.7 % (2.6-8.5); Neutrophils Absolute Auto 2.6 K/mm3 (1.3-6.7); Neutrophils Percent Auto 51.3 % (45.5-73.1); Platelet Count Result 284 k/mm3 (150-375); Red Cell Distribution Width 13.1 % (11.5-14.5); White Blood Count 5.1 K/mm3 (4.5-10.0)
== END 2023-10-17 10:02 | disposition home or self-care (01) ==
LOC: ANHLAB 10:02
PROVIDERS: PCP Nurse Practitioner Adult Health; Visit Provider Internal Medicine Pulmonary Disease
DX: J44.9 Chronic obstructive pulmonary disease, unspecified (principal)
CPT/HCPCS: 36415; 85025

== ENCOUNTER 2023-10-26 08:00 | Outpatient (CLI) | payer OTHER, SELFPAY ==
--- NOTE | 2023-10-26 13:31 | P.PCNPFT_ITS ---
PFT Procedure Performed PFT Procedure Performed Spirometry with Pre/Post Bronchodilator Plethysmography (Lung Vol) Diffusing Cap (DLCO) Flow Vol Loop PFT Interpretation This is a pulmonary function test with pre and post-bronchodilator spirometry, plethysmography and diffusing capacity. The test was performed and results interpreted in accordance with the 2019 and 2005 ATS/ERS Task Force guidelines respectively using the Global Lung Function Initiative-2012 reference equations. Patient demonstrated good effort and cooperation. Reproducibility criteria were met. The quality of the pre bronchodilator spirometry maneuver was Grade A and post bronchodilator spirometry maneuver was Grade A. Findings: Spirometry: There is decreased maximal expiratory airflow at all lung volumes. The contour the inspiratory flow tracing is normal. The pre bronchodilator FVC is 4.79 L, 94% predicted. The pre bronchodilator FEV1 is 2.93 L, 71% predicted. The pre bronchodilator FEV1: FVC ratio 61%. The post bronchodilator FVC is 4.58 L, representing a 4% decrease. The post bronchodilator FEV1 is 3.12 L, rep resenting a 6% increase. The post bronchodilator FEV1: FVC ratio 68%. Plethysmography: The total lung capacity is 6.69 L, 100% predicted. The functional residual capacity is 3.38 L, 102% predicted. The residual volume is 1.90 L, 109% predicted. Diffusing capacity: The diffusing capacity unadjusted for hemoglobin and carboxyhemoglobin is 29.1, 89% predicted. The diffusing capacity adjusted for alveolar volume is 5.31, 107% predicted. Impression: There is a mild obstructive abnormality. There is no significant improvement after inhaling a single dose of albuterol. The lung volumes are normal. The DLCO is normal. There are no prior studies for comparison
== END 2023-10-26 08:01 | disposition home or self-care (01) ==
LOC: ANHPFT 08:01
PROVIDERS: PCP Nurse Practitioner Adult Health; Visit Provider Internal Medicine Pulmonary Disease
DX: J45.909 Unspecified asthma, uncomplicated (principal); R94.2 Abnormal results of pulmonary function studies
CPT/HCPCS: 94060; 94726; 94729

== ENCOUNTER 2023-11-23 00:11 | Day surgery (SDC) | payer OTHER, SELFPAY ==
[2023-11-09 13:40] VITALS: BMI 27.0
[2023-11-23 10:20] VITALS: BP 130/78; PULSE 74; RESP 18; TEMP 36.5; O2SAT 100
[2023-11-23] MEDS: LACTATED RINGERS 1,000 ML 150 ML IV CONT (10:25)
--- NOTE | 2023-11-23 11:02 | PM.HPGS ---
History of Present Illness History of Present Illness Consent: Risks, benefits, and alternatives have been discussed and questions answered. Patient agrees to proceed with procedure. 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 Had egd in 2020 and 2022, bx small bowel and esophagus normal, both gastric bx with mild gastritis, no h pylori. Review of Systems Constitutional: Constitutional: Denies headache(s) and Denies weakness Eyes: Eyes: Denies blurry vision ENT: Reports Normal hearing present, Denies headache(s) and Denies neck pain Cardiovascular: Cardiovascular: Denies chest pain and Denies dyspnea Respiratory: Respiratory: Denies dyspnea Gastrointestinal: Gastrointestinal: Reports no additional gastrointestinal complaints Genitourinary: Genitourinary: Denies dysuria Musculoskeletal: Musculoskeletal: Denies neck pain Integumentary/Breasts: Skin/Breast: Denies dry skin Neurologic: Reports Normal hearing present, Denies headache(s) and Denies weakness Psychiatric: Psychiatric: Denies anxiety Endocrine: Endocrine: Denies change in body appearance Hematologic/Lymphatic: Hematologic/Lymphatic: Denies easy bleeding Allergic/Immunologic: Allergic/Immunologic: Denies urticaria PMFSH Past Medical History Medical History Asthma Chest pain Chronic gastritis Chronic headaches Colon, diverticulosis Dark stools Epigastric pain GERD (gastroesophageal reflux disease) Heart murmur Heart palpitations Hx of adenomatous colonic polyps Hx of diverticulitis of colon Nausea Obesity Sleep apnea Ventricular tachyarrhythmia Surgical History Surgical History S/P hernia surgery Family History Family History Father Asthma Diabetes mellitus Hypertension Depression Heart disease History of ETOH abuse Mother Heart disease Grandparent History of ETOH abuse Cerebrovascular accident Grandparent Diabetes mellitus Hypertension Depression Social History Social History Smoking status: Never smoker Second hand tobacco smoke exposure: Yes Alcohol intake: current Drinks per week: 1 Alcohol use details: Maybe once a month Substance use: never Substance use type: does not use Lack of Transportation: No Lack of Food: Never True Current Housing: I Have Housing Concerned About Future Housing: No Difficulty Paying Gas/Electric Bills: No Difficulty Paying for Meds: No Currently Unemployed: No Difficulty w/ Childcare or Family Care: No Living arrangements: with family Additional occupation/education comments: [employer] Gender identity (if verbalized by the patient): Male Spiritual care concerns: No Agree to blood products: Yes Meds Home Medications and Allergies Home Medications Medication Instructions Recorded Confirmed Type [place] 3 1 cap BYMOUTH DAILY 09/04/23 11/09/23 History fluoxetine 10 mg capsule 10 mg PO DAILY #30 caps 10/01/23 11/09/23 Rx pantoprazole 40 mg tablet,delayed 40 mg PO DAILY #30 tabs 10/09/23 11/09/23 Rx release albuterol sulfate 90 mcg/actuation 2 inh inhalation Q4H PRN shortness 11/08/23 11/09/23 Rx aerosol inhaler of breath or wheezing #1 ea Cataplex B 1 cap PO DAILY 11/09/23 11/09/23 History Trace Minerals With Iodine 1 cap PO DAILY 11/09/23 11/09/23 History Vitamin D3 1 cap PO DAILY 11/09/23 11/09/23 History Vitamin E2 1 cap PO DAILY 11/09/23 11/09/23 History Allergies Allergy/AdvReac Type Severity Reaction Status Date / Time No Known Drug Allergies Allergy Mild Unknown Verified 11/23/23 10:18
--- NOTE | 2023-11-23 11:05 | WPDANESEPPF ---
Anes - Initial Pre Proc Eval Procedure: Operation Date: 11/23/23 11:30 Proposed Procedures p Esophagogastroduodenoscopy - Cj Gan MD Date/Time: 11/23/23 11:05 Surgeon: Cj Gan MD Pre Op Diagnosis: chronic gastritis without bleeding Patient Data Age: 38 Gender: M Height: 1.7 m Weight: 75.1 kg Last Vital Signs Temp 97.7 F 11/23/23 10:20 Pulse 74 11/23/23 10:20 Resp 18 11/23/23 10:20 BP 130/78 11/23/23 10:20 Pulse Ox 100 11/23/23 10:20 O2 Del Method Room Air 11/23/23 10:20 Allergies Allergy/AdvReac Type Severity Reaction Status Date / Time No Known Drug Allergies Allergy Mild Unknown Verified 11/23/23 10:18 Home Medications Medication Instructions Recorded Confirmed Type [place] 3 1 cap BYMOUTH DAILY 09/04/23 11/09/23 History fluoxetine 10 mg capsule 10 mg PO DAILY #30 caps 10/01/23 11/09/23 Rx pantoprazole 40 mg tablet,delayed 40 mg PO DAILY #30 tabs 10/09/23 11/09/23 Rx release albuterol sulfate 90 mcg/actuation 2 inh inhalation Q4H PRN shortness 11/08/23 11/09/23 Rx aerosol inhaler of breath or wheezing #1 ea Cataplex B 1 cap PO DAILY 11/09/23 11/09/23 History Trace Minerals With Iodine 1 cap PO DAILY 11/09/23 11/09/23 History Vitamin D3 1 cap PO DAILY 11/09/23 11/09/23 History Vitamin E2 1 cap PO DAILY 11/09/23 11/09/23 History Patient hx anesthesia problems: none Family hx anesthesia problems: none Results Review: All pre-operative results and documents have been reviewed as part of the pre-operative evaluation. [facility] Past Medical History Medical History Asthma Chest pain Chronic gastritis Chronic headaches Colon, diverticulosis Dark stools Epigastric pain GERD (gastroesophageal reflux disease) Heart murmur Heart palpitations Hx of adenomatous colonic polyps Hx of diverticulitis of colon Nausea Obesity Sleep apnea Ventricular tachyarrhythmia Surgical History Surgical History S/P hernia surgery Family History Family History Father Asthma Diabetes mellitus Hypertension Depression Heart disease History of ETOH abuse Mother Heart disease Grandparent History of ETOH abuse Cerebrovascular accident Grandparent Diabetes mellitus Hypertension Depression Social History Social History Smoking status: Never smoker Second hand tobacco smoke exposure: Yes Alcohol intake: current Drinks per week: 1 Alcohol use details: Maybe once a month Substance use: never Substance use type: does not use Lack of Transportation: No Lack of Food: Never True Current Housing: I Have Housing Concerned About Future Housing: No Difficulty Paying Gas/Electric Bills: No Difficulty Paying for Meds: No Currently Unemployed: No Difficulty w/ Childcare or Family Care: No Living arrangements: with family Additional occupation/education comments: [employer] Gender identity (if verbalized by the patient): Male Spiritual care concerns: No Agree to blood products: Yes Anes - Eval Final PreProcedure Day of Procedure 11/23/23 11:05 Patient weight: normal Heart: regular rate and rhythm Lungs: clear to auscultation Airway: Mallampati scale class II Neurological: alert and oriented Last oral intake: >/= 8 hours ASA classification: III Emergent: no Anesthetic plan: proceed Anesthesia type and monitoring: general GIVS and standard monitoring Results Review: All pre-operative results and documents have been reviewed as part of the pre-operative evaluation. Informed Consent: The patient's anesthetic plan and its attendant risks and benefits were discussed with the patient/family/POA. Questions were solicited and answers provided to the satisfaction of the patien
[2023-11-23 11:12] VITALS: BP 124/75; PULSE 86; RESP 19; O2SAT 100
[2023-11-23 11:22] VITALS: BP 129/82; PULSE 77; RESP 25; O2SAT 98
[2023-11-23 11:32] VITALS: BP 132/83; PULSE 62; RESP 19; O2SAT 98
== END 2023-11-23 11:38 | disposition home or self-care (01) ==
PROVIDERS: PCP Nurse Practitioner Adult Health; Visit Provider Internal Medicine Gastroenterology
PROC: 0DJ08ZZ Inspection of Upper Intestinal Tract, Via Natural or Artificial Opening Endoscopic (ICD-10-PCS; CPT 43235; principal; 2023-11-23 11:30)
DX: K21.9 Gastro-esophageal reflux disease without esophagitis (principal); J45.909 Unspecified asthma, uncomplicated; G47.30 Sleep apnea, unspecified; Z79.51 Long term (current) use of inhaled steroids
CPT/HCPCS: 43239; 88305; J2704; J7120

== ENCOUNTER 2024-01-16 16:11 | Outpatient (CLI) | payer OTHER, SELFPAY ==
[2024-01-16 19:19] LABS: Iron 103 ug/dL (49-181)
[2024-01-16 19:29] LABS: Percent Iron Saturation 32 % (20-50)
== END 2024-01-16 16:12 | disposition home or self-care (01) ==
PROVIDERS: PCP Nurse Practitioner Adult Health; Visit Provider Nurse Practitioner Adult Health
DX: R79.89 Other specified abnormal findings of blood chemistry (principal)
CPT/HCPCS: 36415; 82728; 83540; 83550

== ENCOUNTER 2024-03-03 14:31 | Outpatient (CLI) | payer OTHER, SELFPAY ==
--- NOTE | ~2024-03-03 | MR_ITS ---
EXAMINATION: MR abdomen wo/w con DATE: 03/03/2024 15:32 INDICATION: Liver disease TECHNIQUE: Magnetic resonance imaging (MRI) of the abdomen was performed without and with 15 mL Multi richar intravenous contrast. Sequences included coronal T2-weighted SS-FSE, coronal and axial FS 2D-F IESTA, axial STIR FSE, axial T2-weighted SS-FSE, axial T2-weighted FS SS-FSE, axial diffusion-weighte d SE, axial dual-echo T1-weighted FSPGR, and axial and coronal T1-weighted LAVA. Postcontrast axial T 1-weighted LAVA images were obtained in a time course. Postcontrast coronal T1-weighted LAVA images w ere obtained. COMPARISON: CT dated 08/26/2023 FINDINGS: Heart size is normal. No pericardial effusion. Trace bilateral pleural effusions. Liver, gallbladder, spleen, pancreas and bilateral adrenal glands are normal. No intra or extra hepatic biliary ductal d ilation. Common bile duct measures 5 mm in maximal diameter which is normal and tapers distally with no evident choledocholithiasis. There are couple cysts in the right kidney the larger measuring 1.8 c m. Normal left kidney. Bowels are unremarkable no obstruction. No pathologically enlarged abdominal o r upper pelvic lymphadenopathy. Bones are unremarkable with normal marrow signal throughout. IMPRESSION: 1. Trace bilateral pleural effusions and a couple right renal cysts. Otherwise unremarkable abdominal MRI. Specifically the liver is normal with no intra or extrahepatic biliary ductal dilation. Reviewed, dictated and finalized at location A. IMPRESSION: 1. Trace bilateral pleural effusions and a couple right renal cysts. Otherwise unremarkable abdominal MRI. Specifically the liver is normal with no intra or e xtrahepatic biliary ductal dilation.
== END 2024-03-03 14:32 ==
PROVIDERS: PCP Nurse Practitioner Adult Health; Visit Provider Nurse Practitioner Adult Health
DX: N28.1 Cyst of kidney, acquired (principal); K76.9 Liver disease, unspecified
CPT/HCPCS: 74183; A9577

== ENCOUNTER 2024-03-05 13:30 | Outpatient (CLI) | payer OTHER, SELFPAY ==
--- NOTE | ~2024-03-05 | XR_ITS ---
XR chest 2V Ordering provider: Blayne Leger MD History: 38 years Male with . J90 - Pleural effusion, not elsewhere classified . Comparison: February 10, 2023 FINDINGS: MEDIASTINUM: The cardiac silhouette is not enlarged. LUNGS: No infiltrates, effusions or pneumothorax. OTHER: No free air under the diaphragm. IMPRESSION: No acute cardiopulmonary pathology. Reviewed, dictated and finalized at location A.
== END 2024-03-05 13:31 ==
LOC: MICIMG 13:31
PROVIDERS: PCP Nurse Practitioner Adult Health; Visit Provider Nurse Practitioner Adult Health
DX: J90 Pleural effusion, not elsewhere classified (principal)
CPT/HCPCS: 71046

== ENCOUNTER 2024-04-23 13:58 | Outpatient (CLI) | payer OTHER, SELFPAY ==
--- NOTE | ~2024-04-23 | DEXA_ITS ---
Bone Density Report Name: TRACI BLANCO Age: 38 Sex: Male Ethnicity: White Date of : 1985 Indication: asthma or emphysema; Referring Provider: MARIAMA LOPEZ Study: Bone densitometry was performed. Exam Date: April 23, 2024 Accession number: [id number] Bone Density: Region BMD T-score Z-score Classification AP Spine(L1-L4) 0.700 -3.5 Femoral Neck (Left) 0.580 -2.1 Total Hip (Left) 0.770 -1.6 Femoral Neck (Right) 0.591 -2.0 Total Hip (Right) 0.749 -1.7 Total Hip Mean 0.760 -1.7 World Health Organization criteria for BMD impression classify patients as: Normal (T-score at or above -1.0), Osteopenia (T-score between -1.0 and -2.5), or Osteoporosis (T-score at or below -2.5). 10-year Fracture Risk: FRAX not reported because: Man under age 50 Clinical Information Provided by Patient: Has the following medical conditions: Asthma or Emphysema Patient maximum height was 66 Drinks caffeinated beverages Impression: The patient's bone mass is below expected range for age, gender and ethnicity based on the Total Spine Z-score. Discussion: BONE DENSITY IS ABNORMALLY LOW FOR AGE, SEX, AND RACE. This patient's lowest Z-score is -2.0 or more below average for age, sex, and race at one or more sites. This may be due to low peak bone mass or to excessive bone loss. There may be some underlying disease or condition contributing to reduced bone mass. Further evaluation should be considered. There are no data relating bone density and fracture risk in younger men. The ISCD position is that the diagnosis of ?low bone mass? or ?osteoporosis? should not be made on densitometric criteria alone. WHO criteria only apply to men age > 50. The 10-year fracture risk calculated by FRAX is less than the threshold recommended by the National Osteoporosis Foundation (NOF) for treatment for men age > 50, and no threshold has been established for younger men. All treatment decisions require clinical judgment and consideration of individual patient factors, including patient preferences, comorbidities, previous drug use, risk factors not captured in the FRAX model (e.g., frailty, falls, vitamin D deficiency, increased bone turnover, interval significant decline in bone density) and possible under or overestimation of fracture risk by FRAX. Although pharmacologic therapy is sometimes indicated for patients with Z-scores in this range, there is little information available. A decision to treat should be based on a thorough consideration of benefits and risks. The patient should follow a healthful lifestyle (good nutrition with adequate calcium and vitamin D, and appropriate weight-bearing exercise). Follow-Up: Consider repeating this study in 2 to 3 years to reassess this patient's status
== END 2024-04-23 13:59 | disposition home or self-care (01) ==
LOC: ANHIMG 13:59
PROVIDERS: PCP Nurse Practitioner Adult Health; Visit Provider Nurse Practitioner Adult Health
DX: M85.89 Other specified disorders of bone density and structure, multiple sites (principal)
CPT/HCPCS: 77080

== ENCOUNTER 2024-08-11 07:45 | Outpatient (CLI) | payer OTHER, SELFPAY ==
--- NOTE | ~2024-08-11 | US_ITS ---
LEFT UPPER EXTREMITY VENOUS ULTRASOUND Ordering provider: Adelina Mathews NP History: . R20.2 - Paresthesia of skin . Comparison: None. FINDINGS: --JUGULAR: Patent and free of thrombus. Normal compressibility, phasic flow and augmentation. --SUBCLAVIAN: Patent and free of thrombus. Normal compressibility, phasic flow and augmentation. --AXILLARY: Patent and free of thrombus. Normal compressibility, phasic flow and augmentation. --BRACHIAL: Patent and free of thrombus. Normal compressibility, phasic flow and augmentation. --CEPHALIC: Patent and free of thrombus. Normal compressibility, phasic flow and augmentation. --BASILIC: Patent and free of thrombus. Normal compressibility, phasic flow and augmentation. --RADIAL: Patent and free of thrombus. Normal compressibility, phasic flow and augmentation. --ULNAR: Patent and free of thrombus. Normal compressibility, phasic flow and augmentation. IMPRESSION: Negative left upper extremity venous US. No deep vein thrombosis. Reviewed, dictated and finalized at location A. [employer] REPRESENTATIVE
--- NOTE | ~2024-08-11 | US_ITS ---
EXAMINATION: US soft tissue chest DATE: 08/11/2024 08:42 INDICATION: Left upper chest pain and swelling TECHNIQUE: Multiple grayscale and Doppler ultrasound images of the region of concern at the left uppe r chest were obtained. COMPARISON: None FINDINGS/IMPRESSION: There is a normal appearance to the subcutaneous fat, the ribs and intercostal space at the region of concern. No abnormal masses or fluid collections identified. Reviewed, dictated and finalized at location A. 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
== END 2024-08-11 07:46 | disposition home or self-care (01) ==
PROVIDERS: PCP Nurse Practitioner Family; Visit Provider Nurse Practitioner Family
DX: R07.9 Chest pain, unspecified (principal); R20.2 Paresthesia of skin
CPT/HCPCS: 76604; 93971

== ENCOUNTER 2024-12-13 08:59 | Outpatient (CLI) | payer OTHER, SELFPAY ==
--- NOTE | ~2024-12-13 | XR_ITS ---
XR thoracic spine 3V 12/13/2024 09:27 Indication: Chronic mid back pain Procedure: 3 views thoracic spine Comparison: No prior studies for comparison. Findings: There is mild dextroscoliosis of the thoracic spine. There is accentuated kyphosis. There i s mild wedge compression deformities anterior aspect of T3-T6, likely chronic. No paraspinal soft tis alejandrina abnormality. Surrounding osseous structures are unremarkable. Impression: 1: Mild anterior wedge compression deformities of multiple midthoracic vertebra, likely chronic. Acce ntuated kyphosis. Reviewed, dictated and finalized at location A. Impression: 1: Mild anterior wedge compression deformities of multiple midthoracic vertebra , likely chronic. Accentuated kyphosis.
== END 2024-12-13 09:00 | disposition home or self-care (01) ==
LOC: MICIMG 09:01
PROVIDERS: PCP Nurse Practitioner Family; Visit Provider Internal Medicine
DX: E66.9 Obesity, unspecified (principal); M85.80 Other specified disorders of bone density and structure, unspecified site
CPT/HCPCS: 72072